=== PATIENT | female | born 1960 | race Caucasian/White ===

== ENCOUNTER 2019-01-01 00:37 | Outpatient (CLI) | payer BC ==
[2019-01-01 10:38] LABS: #Eosinphils 0.3 thou/uL (0.0-0.7); #Lymphocytes 1.7 thou/uL (1.20-3.40); #Monocytes 0.4 thou/uL (0.11-0.59); #Neutrophils 3.6 thou/uL (1.40-6.50); %Basophils 0.5 % (0.0-1.0); %Lymphocytes 28.3 % (21.0-51.0); %Monocytes 6.9 % (0.0-10.0); %Neutrophils 59.2 % (42.0-75.0); Hemoglobin 14.4 g/dL (12.0-16.0); Mean Corpuscular HGB CONC 32.7 g/dL (32.0-36.0); Mean Corpuscular Hemoglobin 34.2 pg (27.0-31.0); Mean Platelet Volume 7.3 fL (7.4-10.4); Platelet Count 254 thou/uL (130-400); RBC Distribution Width 11.6 % (11.5-14.5); Red Blood Cell (RBC) Count 4.23 mill/uL (4.20-5.40); White Blood Cell (WBC) Count 6.1 thou/uL (4.8-10.8)
== END 2019-01-01 00:38 | disposition home or self-care (01) ==
LOC: LABBT 00:37
PROVIDERS: ATTEND Orthopaedic Surgery Hand Surgery
DX: Z01.812 Encounter for preprocedural laboratory examination (principal); M65.312 Trigger thumb, left thumb
CPT/HCPCS: 85025; 85652

== ENCOUNTER 2019-01-05 05:32 | Day surgery (SDC) | payer BC ==
[2019-01-01 09:44] VITALS: BMI 29.7
[2019-01-05] MEDS ORDERED: Fentanyl 100 MCG/2 ML VIAL ONE (06:22)
[2019-01-05] MEDS ORDERED: Betamet Acet/Betamet Na Ph 30 MG/5 ML VIAL ONE (06:35)
[2019-01-05] MEDS ORDERED: Bupivacaine PF 0.5% 30 ML VIAL ONE (06:35)
[2019-01-05] MEDS ORDERED: Bacitracin Zinc Ointment 30 gm TUBE ONE (06:39)
[2019-01-05] MEDS ORDERED: Propofol 1,000 MG/100 ML VIAL IV ONE (06:57)
[2019-01-05] MEDS ORDERED: Midazolam HCl 2 mg/2 ml Vial ONE (07:27)
--- NOTE | 2019-01-05 10:19 | OP ---
DATE OF PROCEDURE: 01/05/2019 PREOPERATIVE DIAGNOSIS: Left trigger thumb. POSTOPERATIVE DIAGNOSIS: Left trigger thumb. FINDINGS: Left A1 ana maria very thick without significant tenosynovitis and no mass is seen. COMPLICATIONS: None. PROCEDURE PERFORMED: Left thumb A1 ana maria release. TOURNIQUET TIME: 11 minutes. INJECTABLES: Celestone 3 mL drip technique. ESTIMATED BLOOD LOSS: 5 mL. ANESTHESIA: Conscious sedation augmented by 10 mL of 0.5% Marcaine block. INDICATION: Failed conservative treatment including injection, therapy, and splinting to resolve the problem. DESCRIPTION OF PROCEDURE: After successful anesthesia by [place] [facility], the patient's limb was prepped and draped. Time-out had been done appropriately, and then we injected the 10 mL of 0.5% Marcaine, waited 5 minutes, and then exsanguinated the limb and inflated the tourniquet to 250 mmHg pressure. The patient then had a Francy type incision of 1 cm long, made over the mass, which was a thickened A1 ana maria. We carried this through skin and subcutaneous tissue, identified the radial and ulnar nerve branches of the digital nerve, protected them and divided very thick A1 ana maria in the midline. We released in the midline using combination of [place] blade and tenotomy scissors. We lifted up the tendon, found no thickening of the flexor pollicis longus, and there were no masses underneath or surrounded. The patient had the Celestone 3 mL placed in the wound. Tourniquet was released. Hemostasis was obtained, and the incision was closed with interrupted 4-0 nylon in a simple pattern. Soft dressing was applied. The patient left the operating room without evidence of anesthetic operative complication. Job ID: [id number]
[2019-01-05] MEDS ORDERED: PROPOFOL 200 MG/20 ML VIAL ONE (12:46)
== END 2019-01-05 09:04 | disposition home or self-care (01) ==
LOC: SDC 05:32
PROVIDERS: ATTEND Orthopaedic Surgery Hand Surgery
PROC: 0LN80ZZ Release Left Hand Tendon, Open Approach (ICD-10-PCS; principal; 2019-01-05)
DX: M65.312 Trigger thumb, left thumb (principal); G47.30 Sleep apnea, unspecified; E55.9 Vitamin D deficiency, unspecified; E27.1 Primary adrenocortical insufficiency; Z79.899 Other long term (current) drug therapy; Z91.018 Allergy to other foods
CPT/HCPCS: J0702; J2250; J2704; J3010; S0020

== ENCOUNTER 2020-04-19 10:24 | Outpatient (CLI) | payer BC ==
--- NOTE | 2020-04-19 10:53 | RAD ---
EXAM: 3 views of the left hand COMPARISON: None HISTORY: Thumb pain FINDINGS: 3 views of the hand shows a fracture at the base of the proximal phalanx No degenerative ch anges are seen. No soft tissue swelling is present. IMPRESSION: Gamekeeper's fracture at the base of the proximal phalanx of the thumb
== END 2020-04-19 10:25 | disposition home or self-care (01) ==
LOC: BICRAD 10:24
PROVIDERS: ATTEND Physician Assistant
DX: S69.92XA Unspecified injury of left wrist, hand and finger(s), initial encounter (principal); S62.512A Displaced fracture of proximal phalanx of left thumb, initial encounter for closed fracture

== ENCOUNTER 2020-05-04 14:55 | Outpatient (CLI) | payer BC ==
--- NOTE | 2020-05-04 17:54 | MRI ---
EXAM: LEFT UPPER EXTREMITY MRI WITHOUT IV CONTRAST: 05/04/20 HISTORY: Closed displaced fracture of left thumb. FINDINGS: Multiplanar and multisequence MRI examination of the left thumb is performed. There is evidence for a minimally displaced oblique corner facture of the ulnar side of the base of the proximal phalanx ext ending into the metacarpophalangeal joint. There is some abnormal marrow edema involving the volar po rtion of the distal first metacarpal. There is some fairly prominent edema in the soft tissues around the fracture site. There does appear to be some abnormal signal associated with the ulnar collateral ligament. The adductor pollicis aponeurosis is inadequately visualized. I cannot exclude the possibi lity of an associated Stener lesion. IMPRESSION: Abnormal signal associated with the ulnar collateral ligament with a inadequately seen poorly defined adductor pollicis aponeurosis. Certainly raises concern for the possibility of an associated Stener lesion. Very mildly displaced corner type fracture involving the ulnar sided base of the proximal phalanx wit h some adjacent marrow edema. Minimal focal marrow edema in the volar aspect of the distal first metacarpal. This exam is limited technically, particularly in regards to the axial sequences. This was reviewed in consensus with Dr. Vivas. POS: RRE
== END 2020-05-04 14:56 | disposition home or self-care (01) ==
LOC: BICMRI 14:55
PROVIDERS: ATTEND Orthopaedic Surgery Hand Surgery
DX: S62.512A Displaced fracture of proximal phalanx of left thumb, initial encounter for closed fracture (principal)